=== PATIENT | male | born 2000 | race Caucasian/White ===

== ENCOUNTER 2020-05-09 14:56 | Emergency (ER) | payer SELFPAY ==
[~2020-05-09] VITALS: Ht 172.7 cm; Wt 68.2 kg
--- NOTE | 2020-05-09 15:25 | PHYS DOC ---
Past History Past Medical History: Anxiety, Bipolar, Depression Past Medical History HX, Poly substance Abuse (ALICE QUIÑONEZ MD) Smoking: Cigarettes Alcohol Use: Occasionally Drug Use: Marijuana, Other (ALICE QUIÑONEZ MD) Adult General Chief Complaint Chief Complaint: OVERDOSE HPI HPI Patient is a19 YO MALE WHO PRESENTS WILLI THE ER TODAY WITH C/O TAKING 20 TABLETS OF 500MG TYLENOL AT 14:30 TODAY, ALSO CUT LEFT FOREARM WITH KNIFE WHILE DRIVING TO HIS MOTHERS HOUSE AND TALKING TO HIS EX-GIRLFRIEND. PTS MOTHER TOLD HIM TO COME TO THE ER FOR AN EVALUATION, PT REPORTS A LONG HX OF SUICIDE ATTEMPTS ALL HANGING ATTEMPTS FROM 2015 TO 2019, 4 ATTEMPTS UNSUCCESSFUL. PT STATES HE IS CURRENTLY SUICIDAL AND NOT HOMICIDAL, IS REQUESTING HELP. PT DENIES OTHER PHYSICAL SYMPTOMS OR PHYSICAL ILLNESSES, DENIES NAUSEA, VOMITING, ABDOMINAL PAINS, DIZZYNESS OF VOSUAL CHANGES. (MARIA ESTHER SCHERER APRN) Review of Systems Review of Systems 14 body systems of review of systems have been reviewed. See HPI for pertinent positives and negative responses, otherwise all other systems are negative, nonpertinent or noncontributory. (MARIA ESTHER SCHERER APRN) Allergies Allergies Allergies Coded Allergies Type Severity Reaction Last Updated Verified No Known Drug Allergies 05/09/20 No (MARIA ESTHER SCHERER APRN) Physical Exam Physical Exam Constitutional: Well developed, well nourished, no acute distress, non-toxic appearance. [] HENT: Normocephalic, atraumatic, bilateral external ears normal, oropharynx moist, no oral exudates, nose normal. [] Eyes: PERRLA, EOMI, conjunctiva normal, no discharge. [] Neck: Normal range of motion, no tenderness, supple, no stridor. [] Cardiovascular:Heart rate regular rhythm, no murmur [] Lungs & Thorax: Bilateral breath sounds clear to auscultation [] Abdomen: Bowel sounds normal, soft, no tenderness, no masses, no pulsatile masses. [] Skin: Warm, dry, no erythema, no rash. LEFT FOREARM WITH 7 SUPERFICIAL LACERATIONS , NO BLEEDING MEASURING EACH APPROX 5 TO 7 CM IN LENGTH, NON GAPING/NON BLEEDING. Back: No tenderness, no CVA tenderness. [] Extremities: No tenderness, no cyanosis, no clubbing, ROM intact, no edema. [] Neurologic: Alert and oriented X 3, normal motor function, normal sensory function, no focal deficits noted. [] Psychologic: Affect FLAT, POOR JUDGMENT. NON ANXIOUS. NOT HOMICIDAL, HAS SUICIDAL IDEATIONS. (MARIA ESTHER SCHERER APRN) Current Patient Data Lab Results Laboratory Tests Test 05/09/20 13:10 05/09/20 15:00 05/09/20 15:10 05/09/20 16:16 Prothrombin Time 10.1 SEC Prothromb Time International Ratio 1.0 Total Bilirubin 2.8 mg/dL 2.8 mg/dL Direct Bilirubin 0.3 mg/dL Aspartate Amino Transf (AST/SGOT) 18 U/L 17 U/L Alanine Aminotransferase (ALT/SGPT) 24 U/L 23 U/L Alkaline Phosphatase 104 U/L 102 U/L Total Protein 8.2 g/dL 8.2 g/dL Albumin 4.6 g/dL 4.5 g/dL White Blood Count 8.8 x10^3/uL Red Blood Count 5.24 x10^6/uL Hemoglobin 17.3 g/dL Hematocrit 50.3 % Mean Corpuscular Volume 96 fL Mean Corpuscular Hemoglobin 33 pg Mean Corpuscular Hemoglobin Concent 34 g/dL Red Cell Distribution Width 13.3 % Platelet Count 300 x10^3/uL Neutrophils (%) (Auto) 68 % Lymphocytes (%) (Auto) 21 % Monocytes (%) (Auto) 10 % Eosinophils (%) (Auto) 1 % Basophils (%) (Auto) 1 % Neutrophils # (Auto) 6.0 x10^3uL Lymphocytes # (Auto) 1.8 x10^3/uL Monocytes # (Auto) 0.9 x10^3/uL Eosinophils # (Auto) 0.1 x10^3/uL Basophils # (Auto) 0.0 x10^3/uL Sodium Level 140 mmol/L Potassium Level 3.7 mmol/L Chloride Level 102 mmol/L Carbon Dioxide Level 26 mmol/L Anion Gap 12 Blood Urea Nitrogen 13 mg/dL Creatinine 0.9 mg/dL Estimated GFR (Cockcroft-Gault) 107.6 BUN/Creatinine Ratio 14 Glucose Level 109 mg/dL Calcium Level 9.7 mg/dL Albumin/Globulin Ratio 1.2 Salicylates Level 9.7 mg/dL Salicylate Last Dose Date 1500 Salicylate Last Dose Time 05/09/20 Acetaminophen Level 86.1 mcg/mL 63.1 mcg/mL Acetaminophen Last Dose Date 1500 1800 Acetaminophen Last Dose Time 05/09/20 05/09/20 Ethyl Alcohol Level < 10 mg/dL Test 05/09/20 20:34 Urine Collection Type Unknown Urine Color Joan Urine Clarity Clear Urine pH 6.0 Urine Specific [place] >=1.030 Urine Protein Neg Urine Glucose (UA) Neg mg/dL Urine Ketones (Stick) Neg mg/dL Urine Blood Neg Urine Nitrite Neg Urine Bilirubin Neg Urine Urobilinogen Dipstick 0.2 mg/dL Urine Leukocyte Esterase Neg Urine RBC 0 /HPF Urine WBC 0 /HPF Urine Squamous Epithelial Cells None /LPF Urine Bacteria 0 /HPF Urine Opiates Screen Neg Urine Methadone Screen Neg Urine Barbiturates Neg Urine Phencyclidine Screen Neg Urine Amphetamine/Methamphetamine Neg Urine Benzodiazepines Screen Neg Urine Cocaine Screen Neg Urine Cannabinoids Screen Neg Urine Ethyl Alcohol Neg Current Medications Medications (Trade) Dose Ordered Sig/Ynes Route PRN Reason Start Time Stop Time Status Last Admin Dose Admin Charcoal/Sorbitol (Actidose Sorbitol) 50 gm 1X ONCE PO 05/09/20 15:30 05/09/20 15:31 DC 05/09/20 15:30 Lactated Ringer's 1,000 ml @ 1,000 mls/hr 1X ONCE IV 05/09/20 21:30 05/09/20 22:29 05/09/20 21:30 (MARIA ESTHER SCHERER APRN) EKG EKG EKG @ 15:09 NO STEMI, NO ACS, NO ISCHEMIA, NSR WITHOUT ECTOPY, PA INTERVAL .132 QTc INTERVAL .400 INTERPRETED BY ED ATTENDING DR SAEED (MARIA ESTHER SCHERER APRN) Radiology/Procedures Radiology/Procedures [] (MARIA ESTHER SCHERER APRN) Heart Score Risk Factors: Risk Factors: DM, Current or recent (<one month) smoker, HTN, HLP, family history of CAD, obesity. Risk Scores: Risk Factors: DM, Current or recent (<one month) smoker, HTN, HLP, family history of CAD, obesity. (MARIA ESTHER SCHERER APRN) Course & Med Decision Making Course & Med Decision Making Pertinent Labs and Imaging studies reviewed. (See chart for details) PATIENT ARRIVES TO THE ER WITH COMPLAINTS OF SUIDICE ATTEMPT WITH TYLENOL OVERDOSE AND CUTTING LEFT FOREARM. PT REPORTS 20 TABLETS TAKEN AT APPROX 14:30, A 1:1 CONSTANT OBSERVATION INITIATED AND LABS DRAWN FOR PENDING PSYCH CONSULT. PTS SERIAL ACETAMINOPHEN TRENDING DOWNWARDS FROM 80'S TO 60'S IN 4 HOURS, PER POISON CONTROL, PT IS NOT AT RISK FOR LIVER DAMAGE OR FAILURE RELATED TO TYLENOL INGESTION. PT ON VIDEO CONFERENCE WITH PSYCH COMMERCIAL PILOT AT THIS TIME. DISCUSSED CASE WITH ED ATTENDING DR. QUIÑONEZ WHOM ASSUMED PATIENT CARE. (MARIA ESTHER SCHERER APRN) Course & Med Decision Making Impression: 1. Suicidal ideation and attempt 2. Maira-history of bipolar disorder 3. Acetaminophen overdose-nontoxic 4. Anger Management Issues 5.. Oppositional defiance disorder (ALICE QUIÑONEZ MD) Dragon Disclaimer Dragon Disclaimer This electronic medical record was generated, in whole or in part, using a voice recognition dictation system. (MARIA ESTHER SCHERER APRN) Departure Departure: Referrals: PCP,NO (PCP) Dragon Disclaimer This chart was dictated in whole or in part using Voice Recognition software in a busy, high-work load, and often noisy Emergency Department environment. It may contain unintended and wholly unrecognized errors or omissions. (ALICE QUIÑONEZ MD) Attending Co-Sign Attending Co-Sign The patient was seen and interviewed as well as examined at the bedside. The chart was reviewed. The case was discussed. Agree with the plan of care. (ALICE QUIÑONEZ MD) MARIA ESTHER SCHERER APRN May 09, 2020 15:24 ALICE QUIÑONEZ MD May 09, 2020 23:17
[2020-05-09] MEDS ORDERED: CHARCOAL/SORBITOL 25 GM/120 ML SUSPENSION. PO ONE (15:30)
[2020-05-09 15:38] LABS: BASO % 1 % (0-3); EOS # 0.1 x10^3/uL (0.0-0.7); EOS % 1 % (0-3); HEMATOCRIT 50.3 % (39.0-53.0); HEMOGLOBIN 17.3 g/dL (13.0-17.5); LYMPH # 1.8 x10^3/uL (1.0-4.8); LYMPH % 21 % (24-48); MEAN CORPUSCULAR HEMOGLOBIN 33 pg (25-35); MEAN CORPUSCULAR HGB CONC 34 g/dL (31-37); MEAN CORPUSCULAR VOLUME 96 fL (79-100); MONO # 0.9 x10^3/uL (0.0-1.1); MONO % 10 % (0-9); NEUT % 68 % (31-73); PLATELET COUNT 300 x10^3/uL (140-400); RED BLOOD COUNT 5.24 x10^6/uL (4.30-5.70); RED CELL DISTRIBUTION WIDTH 13.3 % (11.5-14.5); WHITE BLOOD COUNT 8.8 x10^3/uL (4.0-11.0)
[2020-05-09 16:02] LABS: CALCIUM 9.7 mg/dL (8.5-10.1); CREATININE 0.9 mg/dL (0.7-1.3); GFR 107.6; POTASSIUM 3.7 mmol/L (3.5-5.1)
[2020-05-09 16:08] LABS: ALBUMIN 4.5 g/dL (3.4-5.0); ALBUMIN/GLOBULIN RATIO 1.2 (1.0-1.7); TOTAL BILIRUBIN 2.8 mg/dL (0.2-1.0); TOTAL PROTEIN 8.2 g/dL (6.4-8.2)
[2020-05-09 16:09] LABS: ACETAMIN 86.1 mcg/mL (10-30); SALIC 9.7 mg/dL (2.8-20.0)
[2020-05-09 18:26] LABS: ALBUMIN 4.6 g/dL (3.4-5.0); DIRECT BILIRUBIN 0.3 mg/dL (0.0-0.2); TOTAL BILIRUBIN 2.8 mg/dL (0.2-1.0); TOTAL PROTEIN 8.2 g/dL (6.4-8.2)
[2020-05-09 19:08] LABS: ACETAMIN 63.1 mcg/mL (10-30)
[2020-05-09 20:58] LABS: BARBITURATES NEG (NEG); BENZODIAZEPINES NEG (NEG); CANNABINOIDS NEG (NEG); COCAINE NEG (NEG); METHADONE NEG (NEG); OPIATES NEG (NEG); PHENCYCLIDINE NEG (NEG)
[2020-05-09 21:04] LABS: BACTERIA,URINE 0 /HPF (0-FEW); BILIRUBIN,URINE NEG (NEG); CLARITY,URINE CLEAR; COLOR,URINE AMBER; GLUCOSE,URINE NEG (NEG); NITRITE,URINE NEG (NEG); RBC,URINE 0 /HPF (0-2); UROBILINOGEN,URINE 0.2 mg/dL (0.2 mg/dL); WBC,URINE 0 /HPF (0-4)
[2020-05-09 21:05] LABS: AMPHETAMINE/METHAMPHETAMINE NEG (NEG)
[2020-05-09] MEDS ORDERED: IV RINGERS SOLUTION,LACTATED 1,000 ML IV ONE (21:30)
[2020-05-09] MEDS ORDERED: LORazepam 1 MG TABLET ONE (23:26)
[2020-05-09] MEDS ORDERED: LORazepam 1 MG TABLET PO ONE (23:30)
[2020-05-09] MEDS ORDERED: OLANZapine IM 10 MG VIAL. IM ONE (23:45)
--- NOTE | 2020-05-11 08:49 | EKG ---
[address] [address] Test Date: 2020-05-09 Test Time: 15:09:37 Pat Name: RADHA PAYNE Department: Room: Gender: M [place] [employer]: BLANCHE : 2000 Requested By: RAO SAEED Order Number: [id number] Reading MD: Measurements Intervals [place] Rate: 79 P: 73 CO: 132 QRS: 86 QRSD: 88 T: 73 QT: 348 QTc: 400 Interpretive Statements SINUS ARRHYTHMIA QRS(T) CONTOUR ABNORMALITY CONSIDER ANTEROLATERAL MYOCARDIAL DAMAGE POSSIBLY ABNORMAL ECG RI6.02 No previous ECG available for comparison
[2020-05-12 16:18] VITALS: BP 137/90
== END 2020-05-12 17:14 | disposition home or self-care (01) ==
LOC: EDBD 14:56 → ER 14:56
DX: T39.1X2A Poisoning by 4-Aminophenol derivatives, intentional self-harm, initial encounter (principal); S51.812A Laceration without foreign body of left forearm, initial encounter; F31.9 Bipolar disorder, unspecified; F91.3 Oppositional defiant disorder; F41.9 Anxiety disorder, unspecified; F17.210 Nicotine dependence, cigarettes, uncomplicated; F12.10 Cannabis abuse, uncomplicated; Z20.828 Contact with and (suspected) exposure to other viral communicable diseases; W26.0XXA Contact with knife, initial encounter; Y93.89 Activity, other specified; Y92.89 Other specified places as the place of occurrence of the external cause; Y99.8 Other external cause status
CPT/HCPCS: 36415; 80053; 80076; 80307; 80329; 81001; 85025; 85610; 87426; 93005; 96360; 99285; G0480; J7120; U0003